=== PATIENT | male | born 1980 ===

== ENCOUNTER 2023-09-27 07:29 | Day surgery (SDC) | payer OTHER | END 2023-09-27 12:35 | disposition home or self-care (01) | LOC: AMB-ENDOS 07:29 | PROVIDERS: ATTEND Colon & Rectal Surgery | DX: D12.0 Benign neoplasm of cecum (principal); R19.4 Change in bowel habit; Z88.6 Allergy status to analgesic agent; Z20.822 Contact with and (suspected) exposure to COVID-19 ==